=== PATIENT | male | born 1985 | race American Indian/Alaskan Native ===

== ENCOUNTER 2017-07-11 20:29 | Emergency (ER) | payer OTHER ==
[~2017-07-11] VITALS: Ht 172.7 cm; Wt 78.0 kg
[2017-07-11] MEDS ORDERED: DIPHENHYDRAMINE 25MG CAPSULE PO ONE (22:45)
[2017-07-11] MEDS ORDERED: MECLIZINE 25MG TABLET PO ONE (22:45)
[2017-07-11 23:35] VITALS: BP 118/61
== END 2017-07-12 00:50 | disposition home or self-care (01) ==
LOC: ER 20:29
DX: R42 Dizziness and giddiness (principal)
CPT/HCPCS: 99282; Z7610; J8597